=== PATIENT | male | born 1955 | race Caucasian/White ===

== ENCOUNTER 2024-11-20 13:33 | Emergency (ER) | payer MEDICARE ==
[~2024-11-20] VITALS: Ht 182.9 cm; Wt 66.7 kg
[2024-11-20 14:41] LABS: BASOPHILS ABSOLUTE AUTO 0.04 K/mm3 (0.00-0.23); BASOPHILS PERCENT AUTO 1 % (0-2); EOSINOPHILS ABSOLUTE AUTO 0.06 K/mm3 (0.00-0.68); EOSINOPHILS PERCENT AUTO 1 % (0-6); Hematocrit 49.5 % (37.0-53.0); Hemoglobin 17.4 g/dL (13.5-17.5); IMMATURE GRAN ABSOLUTE AUTO 0.02 K/mm3 (0.00-0.10); IMMATURE GRAN PERCENT AUTO 0 % (0-1); LYMPHOCYTES ABSOLUTE AUTO 1.05 K/mm3 (0.84-5.20); LYMPHOCYTES PERCENT AUTO 13 % (21-46); MONOCYTES ABSOLUTE AUTO 0.76 K/mm3 (0.16-1.47); MONOCYTES PERCENT AUTO 9 % (4-13); Mean Corpuscular HGB 32.8 pg (26.0-34.0); Mean Corpuscular HGB Conc 35.2 g/dL (31.5-36.5); Mean Corpuscular Volume 93 fL (80-100); Mean Platelet Volume 9.3 fL (9.1-12.4); NEUTROPHILS ABSOLUTE AUTO 6.39 K/mm3 (1.96-9.15); NEUTROPHILS PERCENT AUTO 77 % (41-73); Platelet Count 211 K/mm3 (150-400); RDW Coefficient Variation 12.4 % (11.7-14.2); RDW Standard Deviation 42.6 fL (35.1-46.3); Red Blood Cell Count 5.31 M/mm3 (4.30-5.90); White Blood Cell Count 8.32 K/mm3 (4.00-11.30)
[2024-11-20 15:09] LABS: Albumin, Blood 3.9 g/dL (3.4-5.0); Albumin/Globulin Ratio 1.3 (0.8-1.8); Bilirubin, Total 0.5 mg/dL (0.1-1.0); Bun/Creatinine Ratio 26.8 (12.0-20.0); Calcium, Blood 8.9 mg/dL (8.5-10.1); Creatinine, Blood 0.71 mg/dL (0.60-1.20); Potassium, Blood 4.2 mmol/L (3.5-5.5); Total Protein, Blood 6.9 g/dL (6.4-8.2)
[2024-11-20] MEDS ORDERED: CYCLOBENZAPRINE 5 MG PO (15:39)
[2024-11-20 16:16] LABS: Source, Urine Clean Catch
[2024-11-20 16:24] LABS: Appearance, Urine Clear (Clear); Bilirubin, Urine Neg (Neg); Blood, Urine 5+ (Neg); Glucose Qualitative, Urine Neg (Neg); Ketones, Urine Neg (Neg); Leukocyte Esterase, Urine Neg (Neg); Nitrite, Urine Neg (Neg); Protein, Urine Neg (Neg); Urobilinogen, Urine 1+ (Normal); pH, Urine 6.5 (5.0-8.0)
[2024-11-20 16:58] LABS: Color, Urine Pale Yellow (P-Yellow)
[2024-11-20 17:00] LABS: Red Blood Cells, Urine 25-50 /hpf (0-2); White Blood Cells, Urine 0-2 /hpf (0-5)
[2024-11-20 17:05] LABS: Bacteria Rare /hpf; Squamous Epithelial Cells Not Seen /hpf (Few)
[2024-11-20 17:45] VITALS: BP 115/89
== END 2024-11-20 18:16 ==
LOC: ER 13:33
PROVIDERS: Student in an Organized Health Care Education/Training Program
DX: N43.3 Hydrocele, unspecified (principal); M54.9 Dorsalgia, unspecified; G89.29 Other chronic pain; R39.15 Urgency of urination; R31.29 Other microscopic hematuria; K59.00 Constipation, unspecified; R19.8 Other specified symptoms and signs involving the digestive system and abdomen
CPT/HCPCS: 51798; 74177; 80053; 81001; 85025; 99284-25; Q9967

== ENCOUNTER → 2024-12-30 | Outpatient (CLI) | payer MEDICARE ==
[~2024-12-30] MED LIST: CYCLOBENZAPRINE 5 MG PO
[2024-12-30 17:51] LABS: Source, Urine Clean Catch
[2024-12-30 19:23] LABS: Bacteria Not Seen /hpf; Squamous Epithelial Cells Rare /hpf (Few); White Blood Cells, Urine 0-2 /hpf (0-5)
== END ==
LOC: LAB SHORT 17:50 → LAB 17:50
PROVIDERS: Urology
DX: R31.29 Other microscopic hematuria (principal)
CPT/HCPCS: 81015

== ENCOUNTER → 2025-04-06 | Outpatient (CLI) | payer MEDICARE ==
[2025-04-06 13:26] LABS: White Blood Cells, Urine 0-2 /hpf (0-5)
== END ==
LOC: LAB 12:30 → LAB SHORT 12:30
PROVIDERS: Urology
DX: R31.29 Other microscopic hematuria (principal)
CPT/HCPCS: 81015